=== PATIENT | female | born 1960 | race Two or more races ===

== ENCOUNTER 2017-05-27 15:59 | Emergency (ER) | payer OTHER ==
[~2017-05-27] VITALS: Ht 167.6 cm; Wt 67.6 kg
[~2017-05-27 15:59] MED LIST: KETO10TA2 PO; ORPH100T PO
[2017-05-27] MEDS ORDERED: NORFLEX100MG PO (17:27)
[2017-05-27] MEDS ORDERED: DICLOFENAC SODI50 MG PO (17:27)
[2017-05-27] MEDS ORDERED: VISTARIL25 MG PO (17:27)
== END 2017-05-27 18:45 | disposition home or self-care (01) ==
LOC: ER 15:59
DX: R51 Headache (principal); M54.2 Cervicalgia

== ENCOUNTER 2017-10-05 10:00 | Emergency (ER) | payer OTHER ==
[~2017-10-05] VITALS: Ht 167.6 cm; Wt 69.9 kg
[~2017-10-05 10:00] MED LIST changes: +DICLOFENAC SODI50 MG PO; +NORFLEX100MG PO; +VISTARIL25 MG PO
== END 2017-10-05 12:07 | disposition home or self-care (01) ==
LOC: ER 10:00
DX: M62.838 Other muscle spasm (principal)

== ENCOUNTER 2017-11-19 16:06 | Emergency (ER) | payer OTHER ==
[~2017-11-19] VITALS: Ht 167.6 cm; Wt 68.5 kg
== END 2017-11-19 18:50 | disposition home or self-care (01) ==
LOC: ER 16:06
DX: K29.70 Gastritis, unspecified, without bleeding (principal)

== ENCOUNTER 2018-08-26 10:36 | Emergency (ER) | payer OTHER ==
[~2018-08-26] VITALS: Ht 167.6 cm; Wt 68.0 kg
== END 2018-08-26 15:05 | disposition home or self-care (01) ==
LOC: ER 10:36
DX: M54.5 Low back pain (principal)